=== PATIENT | female | born 1930 | race Caucasian/White ===

== ENCOUNTER 2016-10-14 10:58 | Emergency (ER) | payer MEDICARE, OTHER ==
--- NOTE | 2016-10-14 11:44 | Emergency Department Record ---
History of Present Illness - General Chief complaint: Eye Problem Stated complaint: L EYE RED Time Seen by Provider: 10/14/16 11:25 Source: Patient Mode of Arrival: Ambulatory Limitations: No limitations - History of Present Illness Initial comments: pt woke up with bright red conjunctiva yesterday. she has no pain and no change in vision. chief complaint: Eye redness Onset/Timin -: Days(s) Onset Description: Sudden Location: Left eye Place: Home Eye Symptoms: Redness Consistency: Constant - Related Data With correction: Yes Home Medications Medication Instructions Recorded Confirmed Last Taken Celecoxib [Celebrex] 200 mg PO QD cap 09/15/15 09/08/16 Unknown Cholecalciferol (Vitamin D3) 1,000 unit PO DAILY cap 09/15/15 09/08/16 Unknown [Vitamin D3] Cranberry Extract [Cranberry] 500 mg PO DAILY tab 09/15/15 09/08/16 Unknown Cyanocobalamin (Vitamin B-12) 2,500 mcg IM MONTHLY tab 09/15/15 09/08/16 Unknown [Vitamin B12] Hydrochlorothiazide 25 mg PO QD tab 09/15/15 09/08/16 Unknown Allergies Allergy/AdvReac Type Severity Reaction Status Date / Time nitrofurantoin Allergy ANAPHYLAXIS Verified 09/08/16 12:52 [From Macrobid] nitrofurantoin Allergy ANAPHYLAXIS Verified 09/08/16 12:52 macrocrystalline [From Macrobid] succinylcholine chloride AdvReac DIFFICULTY Verified 09/08/16 12:39 [From Anectine] BREATHING Travel Screening - Travel/Exposure Within Last 30 Days Have you traveled within the last 30 days?: No - Travel/Exposure Within Last Year Have you traveled outside the [place] in the last year?: No - Additonal Travel Details Have you been exposed to anyone with a communicable illness?: No - Travel Symptoms Symptom Screening: None Review of Systems Reviewed: No additional complaints except as noted below Constitutional: Reports: As per HPI. Denies: Chills, Fever, Malaise, Night sweats, Weakness, Weight change Eyes: Reports: As per HPI. Denies: Eye discharge, Eye pain, Photophobia, Vision change ENT: Reports: As per HPI. Denies: Congestion, Dental pain, Ear pain, Epistaxis , Hearing loss, Throat pain Respiratory: Reports: As per HPI. Denies: Cough, Dyspnea, Hemoptysis, Stridor, Wheezes Cardiovascular: Reports: As per HPI. Denies: Arrhythmia, Chest pain, Dyspnea on exertion, Edema, Murmurs, Orthopnea, Palpitations, Paroxysmal nocturnal dyspnea, Rheumatic Fever, Syncope Endocrine: Reports: As per HPI. Denies: Fatigue, Heat or cold intolerance, Polydipsia, Polyuria Gastrointestinal: Reports: As per HPI. Denies: Abdominal pain, Constipation, Diarrhea, Hematemesis, Hematochezia, Melena, Nausea, Vomiting Genitourinary: Reports: As per HPI. Denies: Abnormal menses, Discharge, Dyspareunia, Dysuria, Frequency, Hematuria, Incontinence, Retention, Urgency Musculoskeletal: Reports: As per HPI. Denies: Arthralgia, Back pain, Gout, Joint swelling, Myalgia, Neck pain Skin: Reports: As per HPI. Denies: Bruising, Change in color, Change in hair/ nails, Lesions, Pruritus, Rash Neurological: Reports: As per HPI. Denies: Abnormal gait, Confusion, Headache, Numbness, Paresthesias, Seizure, Tingling, Tremors, Vertigo, Weakness Psychiatric: Reports: As per HPI. Denies: Anxiety, Auditory hallucinations, Depression, Homicidal thoughts, Suicidal thoughts, Visual hallucinations Hematological/Lymphatic: Reports: As per HPI. Denies: Anemia, Blood Clots, Easy bleeding, Easy bruising, Swollen glands Past Medical History - SOCIAL HISTORY Smoking Status: Never smoker Alcohol Use: Rare Drug Use: None - RESPIRATORY Hx Respiratory Disorders: No - CARDIOVASCULAR Hx Cardio Disorders: No - NEURO Hx Neuro Disorders: No - GI Hx GI Disorders: Yes Hx Diverticulitis: Yes - Hx Genitourinary Disorders: Yes Hx UTI: Yes - ENDOCRINE Hx Endocrine Disorders: No - MUSCULOSKELETAL Hx Musculoskeletal Disorders: Yes Hx Arthritis: Yes - PSYCH Hx Psych Problems: No - HEMATOLOGY/ONCOLOGY Hx Hematology/Oncology Disorders: No Family Medical History Any Significant Family History?: Yes Hx Heart Disease: Mother Physical Exam - General General Appearance: Alert, Oriented x3, Cooperative, Mild distress - Head Head exam: Normal inspection - Eye Eye exam: Normal appearance, PERRL, EOMI, Other (subconjunctival hemorrhage.) Pupils: Normal accommodation With correction: Yes - ENT ENT exam: Normal exam, Mucous membranes moist, Normal external ear exam, Normal orophraynx, TM's normal bilaterally Ear exam: Normal external inspection. negative: External canal tenderness Nasal Exam: Normal inspection. negative: Discharge, Sinus tenderness Mouth exam: Normal external inspection, Tongue normal Teeth exam: Normal inspection. negative: Dental caries Throat exam: Normal inspection. negative: Tonsillar erythema, Tonsillar exudate - Neck Neck exam: Normal inspection, Full ROM. negative: Tenderness - Respiratory Respiratory exam: Normal lung sounds bilaterally. negative: Respiratory distress - Cardiovascular Cardiovascular Exam: Regular rate, Normal rhythm, Normal heart sounds - GI/Abdominal GI/Abdominal exam: Soft, Normal bowel sounds. negative: Tenderness - Rectal Rectal exam: Deferred - exam: Deferred - Extremities Extremities exam: Normal inspection, Full ROM, Normal capillary refill. negative: Tenderness - Back Back exam: Reports: Normal inspection, Full ROM. Denies: Muscle spasm, Rash noted, Tenderness - Neurological Neurological exam: Alert, CN II-XII intact, Normal gait, Oriented X3 - Psychiatric Psychiatric exam: Normal affect, Normal mood - Skin Skin exam: Dry, Intact, Normal color, Warm Course Vital Signs 10/14/16 11:01 Temperature 97.7 F Pulse Rate 82 Respiratory 18 Rate Blood Pressure 158/87 Pulse Ox 97 Disposition Disposition: Discharge Clinical Impression: Subconjunctival hemorrhage Qualifiers: Laterality: left Qualified Code(s): H11.32 - Conjunctival hemorrhage, left eye Disposition: Home, Self-Care Condition: (1) Good Instructions: Subconjunctival Hemorrhage (ED) Additional Instructions: follow up with dr dean. return sooner if worse Forms: Patient Portal Access
== END 2016-10-14 11:54 | disposition home or self-care (01) ==
LOC: ER 10:58
DX: H11.32 Conjunctival hemorrhage, left eye (principal)
CPT/HCPCS: 99282

== ENCOUNTER 2018-01-10 21:48 | Emergency (ER) | payer MEDICARE, OTHER | END 2018-01-10 22:30 | disposition left against medical advice (07) | LOC: ER 21:48 | DX: Z53.20 Procedure and treatment not carried out because of patient's decision for unspecified reasons (principal) ==

== ENCOUNTER 2018-03-09 18:58 | Emergency (ER) | payer MEDICARE, OTHER ==
--- NOTE | 2018-03-09 19:23 | Emergency Department Record ---
History of Present Illness - General Chief Complaint: Abdominal Pain Stated Complaint: CONSTIPATION Time Seen by Provider: 03/09/18 19:09 Source: Patient Mode of Arrival: Ambulatory Limitations: No limitations - History of Present Illness Initial Comments: 87 yo female presents to ED for evaluation of lower abdominal pain symptoms for the past 2 days associated the constipation symptoms. Patient denies fever symptoms and denies previous abdominal surgery other than laparoscopic surgery 20 years ago. Patient denies health problems at her baseline. MD Complaint: Abdominal pain Onset/Timin -: Days(s) Location: Diffuse Radiation: None Migration to: No migration Severity: Severe Severity scale (1-10): 8 Quality: Aching Consistency: Constant Improves With: Nothing Worsens With: Nothing Associated Symptoms: Chills - Related Data LMP (females 10-50): other Home Medications Medication Instructions Recorded Confirmed Last Taken Aspirin 325 mg PO ASDIR 03/09/18 03/09/18 Unknown Aspirin/Acetaminophen/Caffeine 1 each PO ASDIR 03/09/18 03/09/18 Unknown [Excedrin Extra Strength Caplet] Diclofenac Sodium [Voltaren] 1 ml TOP ASDIR 03/09/18 03/09/18 Unknown Allergies Allergy/AdvReac Type Severity Reaction Status Date / Time codeine Allergy PT UNSURE Unverified 03/09/18 19:44 OF REACTION furosemide Allergy NAUSEA AND Verified 03/09/18 19:44 VOMITING gabapentin Allergy NAUSEA AND Verified 03/09/18 19:44 VOMITING nitrofurantoin Allergy ANAPHYLAXIS Verified 03/09/18 19:44 [From Macrobid] nitrofurantoin Allergy ANAPHYLAXIS Verified 03/09/18 19:44 macrocrystalline [From Macrobid] venlafaxine Allergy RASH Verified 03/09/18 19:44 succinylcholine chloride AdvReac DIFFICULTY Verified 03/09/18 19:44 [From Anectine] BREATHING Travel Screening - Travel/Exposure Within Last 30 Days Have you traveled within the last 30 days?: No - Travel/Exposure Within Last Year Have you traveled outside the [place] in the last year?: No - Additonal Travel Details Have you been exposed to anyone with a communicable illness?: No - Travel Symptoms Symptom Screening: None Review of Systems Constitutional: Reports: Chills. Denies: Fever, Malaise, Night sweats Eyes: Denies: Eye discharge, Eye pain ENT: Denies: Congestion, Ear pain, Epistaxis Respiratory: Denies: Cough, Dyspnea Cardiovascular: Denies: Chest pain, Dyspnea on exertion Endocrine: Denies: Fatigue, Heat or cold intolerance Gastrointestinal: Reports: Abdominal pain, Nausea. Denies: Vomiting Genitourinary: Denies: Incontinence, Retention Musculoskeletal: Denies: Arthralgia, Back pain, Gout, Joint swelling Skin: Denies: Bruising, Change in color Neurological: Denies: Abnormal gait, Confusion, Headache, Seizure Psychiatric: Denies: Anxiety Hematological/Lymphatic: Denies: Anemia, Blood Clots Past Medical History - SOCIAL HISTORY Smoking Status: Never smoker Alcohol Use: None Drug Use: None - RESPIRATORY Hx Respiratory Disorders: No - CARDIOVASCULAR Hx Cardio Disorders: No - NEURO Hx Neuro Disorders: No - GI Hx GI Disorders: Yes Hx Diverticulitis: Yes - Hx Genitourinary Disorders: Yes Hx UTI: Yes - ENDOCRINE Hx Endocrine Disorders: No - MUSCULOSKELETAL Hx Musculoskeletal Disorders: Yes Hx Arthritis: Yes - PSYCH Hx Psych Problems: No - HEMATOLOGY/ONCOLOGY Hx Hematology/Oncology Disorders: No Family Medical History Any Significant Family History?: Yes Hx Heart Disease: Mother Physical Exam - General General Appearance: Alert, Oriented x3, Cooperative, Moderate distress Limitations: No limitations - Head Head exam: Atraumatic, Normocephalic, Normal inspection Head exam detail: negative: Abrasion, Contusion, Anne's sign, General tenderness, Hematoma, Laceration - Eye Eye exam: Normal appearance. negative: Conjunctival injection, Periorbital swelling, Periorbital tenderness, Scleral icterus - ENT Ear exam: negative: Auricular hematoma, Auricular trauma Nasal Exam: negative: Active bleeding, Discharge, Dried blood, Foreign body Mouth exam: negative: Drooling, Laceration, Muffled voice, Tongue elevation - Neck Neck exam: Normal inspection. negative: Meningismus, Tenderness - Respiratory Respiratory exam: Normal lung sounds bilaterally. negative: Rales, Respiratory distress, Rhonchi, Stridor - Cardiovascular Cardiovascular Exam: Normal rhythm, Normal heart sounds, Tachycardia - GI/Abdominal GI/Abdominal exam: Soft, Tenderness, Other (Diffuse TTP, no rebound, guarding, or peritoneal signs on examination.). negative: Rebound, Rigid - Rectal Rectal exam: Deferred - exam: Deferred - Extremities Extremities exam: Normal inspection. negative: Calf tenderness, Pedal edema, Tenderness - Back Back exam: Denies: CVA tenderness (R), CVA tenderness (L) - Neurological Neurological exam: Alert, Normal gait, Oriented X3 - Psychiatric Psychiatric exam: Normal affect, Normal mood - Skin Skin exam: Normal color. negative: Abrasion Type of lesion: negative: abrasion Course Vital Signs 03/09/18 19:04 Temperature 98 F Pulse Rate [ 102 H Pulse Ox Probe] Respiratory 20 Rate Blood Pressure 127/83 [Right Arm] Pulse Ox 97 - Reevaluation(s) Reevaluation #1: 03/09/18 21:30 Laboratory studies were reviewed, K 3.0. Labs are otherwise grossly unremarkable for an acute process. Patient is now back from CT imaging, interpretation pending. Reevaluation #2: 03/09/18 22:07 CT Abdomen and Pelvis: Findings c/w appendicitis Micro perforation Thickening of the cecum and surrounding small bowel. Zosyn ordered to infuse, will consult with Dr. De Dios for disposition. Reevaluation #3: 03/09/18 22:14 Case was discussed with Dr. De Dios, will accept transfer for surgical consultation. Reevaluation #4: 03/09/18 22:52 Bed assignment has been received from [facility], and EMS is ready for transfer. Family members at the bedside were updated on all results and the plan of care as well. Medical Decision Making - Lab Data Result diagrams: 03/09/18 Unknown 03/09/18 Unknown Disposition Disposition: Transfer Clinical Impression: Acute appendicitis Qualifiers: Acute appendicitis type: with localized peritonitis Qualified Code(s): K35.3 - Acute appendicitis with localized peritonitis Disposition: Acute Care Hospital Transfer Transfer To: [facility] Reason For Transfer: Surgical Consultation Accepting Physician: Va Time Discussed w/Accepting Physician: 22:09 Condition: (2) Stable Forms: Patient Portal Access Time of Disposition: 22:09 Quality - Quality Measures Quality Measures: N/A - Blood Pressure Screening Does Patient Have Any of the Following: No Blood Pressure Classification: Hypertensive Reading Systolic Measurement: 134 Diastolic Measurement: 91 Screening for High Blood Pressure: < First Hypertensive BP, F/U Documented > [ [id number]] First Hypertensive Follow-up Interventions: Referral to alternative/primary care provider.
[2018-03-09 19:26] LABS: BASO % 0.2 % (0-6); EOS % 0.1 % (0-6); GRAN % 70.1 % (47-80); HEMATOCRIT 42.3 % (35.0-47.0); HEMOGLOBIN 13.3 gm/dl (11.6-16.0); LYMPH % 24.9 % (16-45); MEAN CORPUSCULAR HEMOGLOBIN 28.6 pg (27-33); MEAN CORPUSCULAR HGB CONC 31.4 g/dl (32-36); MEAN PLATELET VOLUME 9.3 fl (7.4-10.4); MONO % 4.7 % (0-9); PLATELET COUNT 295 K/uL (130-400); RED BLOOD COUNT 4.65 M/uL (3.80-5.40); RED CELL DISTRIBUTION WIDTH 14.1 % (11.5-14.5); WHITE BLOOD COUNT W/O DIFF 11.5 K/uL (4.2-12.2)
[2018-03-09] MEDS: FENTANYL PF 100MCG/2ML VIAL IVP ONE ×2 (19:33→23:12)
[2018-03-09] MEDS: ONDANSETRON HCL IV 4 MG/2 ML VIAL IVP ONE (19:33)
[2018-03-09] MEDS: 0.9 % SODIUM CHLORIDE 1000ML 1,000 ML IV SCH (19:33)
[2018-03-09 19:37] LABS: BLOOD UREA NITROGEN 15 mg/dL (8-23); CREATININE 0.7 mg/dL (0.5-0.9); EST GLOMERULAR FILTRATION RATE > 60 mL/min
[2018-03-09 19:40] LABS: GLUCOSE,RANDOM 136 mg/dL (74-109)
[2018-03-09 19:42] LABS: ALBUMIN 3.7 g/dL (4.0-5.0); ALKALINE PHOSPHATASE 117 U/L (35-104); ALT/SGPT 10 U/L (<33); AST/SGOT 20 U/L (10.0-35.0)
[2018-03-09 19:43] LABS: ALB/GLOB RATIO 1.1 (1.1-1.8); LIPASE 24 U/L (13-60)
[2018-03-09] MEDS: MAGNESIUM HYDROXIDE/AL HYDROX 30 ML, LIDOCAINE VISC 2% 15ML 15 ML PO ONE ×2 (21:36)
[2018-03-09] MEDS ORDERED: 0.9 % SODIUM CHLORIDE 1000ML 1,000 ML IV SCH (22:15)
[2018-03-09] MEDS: PIPERACILLIN SODIUM/TAZOBACTAM 4.5 GM in 0.9 % SODIUM CHLORIDE 100ML 100 ML IVPB ONE (22:28)
[2018-03-09] MEDS: SOD CHLOR 0.9% WITH KCL 40MEQ 40 MEQ/1,000 ML IV.SOLN IV ONE (22:28)
--- NOTE | 2018-03-10 00:10 | CT SCAN REPORT ---
EXAM: CT SCAN ABDOMEN/PELVIS W CONTRAST HISTORY: LOWER MID ABDOMINAL TENDERNESS AND PAIN FOR ONE DAY. PREVIOUS CHOLECYSTECTOMY. TECHNIQUE: Routine CT images of the abdomen and pelvis obtained following intravenous administration of contrast, amount and type of contrast in the medical record. FINDINGS: There is bibasilar atelectasis or scar. Gallbladder surgically absent. Liver, pancreas, spleen, adrenals, and kidneys are unremarkable. Small hiatal hernia. There are findings compatible with acute appendicitis. The appendix is dilated measuring 11 mm in caliber with surrounding inflammatory change. There are bubbles of gas, which are extraluminal compatible with microperforation. No rim-enhancing abscess. Mild surrounding free fluid. There is nearby wall thickening of the cecum and terminal ileum, presumably reactive, though other processes not excluded. Elsewhere, there is scattered colonic diverticulosis. Bladder unremarkable. Uterus is present. There are calcified uterine fibroids/ leiomyomata. There is atherosclerotic calcification. Aorta normal in caliber. There are a few mildly prominent mesenteric lymph nodes, especially within the right lower quadrant, which may be reactive. There are similar advanced degenerative changes involving the lumbar spine. Grade 1 anterolisthesis L2-3 and marked endplate irregularity, slightly progressed. Dextrocurvature within the lumbar spine. IMPRESSION: 1. FINDINGS COMPATIBLE WITH ACUTE APPENDICITIS. THERE IS EXTRALUMINAL GAS, LIKELY RELATED TO MICROPERFORATION. NO RIB-ENHANCING ABSCESS. 2. ASSOCIATED WALL THICKENING INVOLVING THE CECUM AND NEARBY SMALL BOWEL LOOPS IS PROBABLY REACTIVE, THOUGH UNDERLYING MASS WOULD BE DIFFICULT TO COMPLETELY EXCLUDE. ATTENTION SHOULD BE PAID TO THIS REGION AT TIME OF SURGERY. 3. MILDLY PROMINENT MESENTERIC LYMPH NODES, ESPECIALLY WITHIN THE RIGHT LOWER QUADRANT, WHICH MAY BE REACTIVE, THOUGH NONSPECIFIC. 4. MILD FREE FLUID. 5. COLONIC DIVERTICULOSIS. 6. UTERINE LEIOMYOMATA. 7. ADVANCED LUMBAR SPONDYLOSIS, WHICH HAS PROGRESSED COMPARED TO PREVIOUS EXAM AND DEMONSTRATES ENDPLATE IRREGULARITY, MOST NOTABLY AT L2-3. JOB NUMBER: [id number] [facility]
== END 2018-03-09 23:14 | disposition short-term general hospital (02) ==
LOC: ER 18:58
DX: K35.3 Acute appendicitis with localized peritonitis (principal); E87.6 Hypokalemia
CPT/HCPCS: 74177; 80053; 83690; 85025; 96365; 96366; 96368; 96375; 96376; 99285; J2405; J2543; J3490; J7030

== ENCOUNTER 2018-12-28 10:40 | Emergency (ER) | payer MEDICARE, OTHER ==
[2018-12-28 11:07] LABS: URINE APPEARANCE CLOUDY; URINE BILIRUBIN NEGATIVE (NEGATIVE); URINE BLOOD MODERATE (NEGATIVE); URINE COLOR YELLOW; URINE GLUCOSE (UA) NEGATIVE (NEGATIVE); URINE KETONE NEGATIVE (NEGATIVE); URINE LEUKOCYTE ESTERASE LARGE (NEGATIVE); URINE NITRITE POSITIVE (NEGATIVE); URINE PROTEIN TRACE (NEGATIVE); URINE UROBILINOGEN 0.2 E.U./dL (0.20 - 1.00)
--- NOTE | 2018-12-28 11:12 | Emergency Department Record ---
History of Present Illness - General Chief complaint: Female Urogenital Problem Stated complaint: POSS BLADDER INFECTION Time Seen by Provider: 12/28/18 11:02 Source: Patient Mode of Arrival: Ambulatory Limitations: No limitations - History of Present Illness Initial comments: pt thinks she has a uti. no n/v, no fever. she has freq, urgency MD Complaint: Dysuria Onset/Timin -: Days(s) Severity: Moderate Severity scale (1-10): 7 Quality: Cramping, Other Consistency: Intermittent Improves with: None Worsens with: Urination Associated Symptoms: Dysuria - Related Data Home Medications Medication Instructions Recorded Confirmed Last Taken Schulenburg-3 Fatty Acids [Schulenburg-3] 1 tab PO DAILY 12/28/18 12/28/18 12/28/18 Previous Rx's Medication Instructions Recorded Sulfamethoxazole/Trimethoprim 1 each PO BID #14 tablet 12/28/18 [Bactrim Ds Tablet] Allergies Allergy/AdvReac Type Severity Reaction Status Date / Time codeine Allergy PT UNSURE Verified 12/28/18 10:49 OF REACTION furosemide Allergy NAUSEA AND Verified 12/28/18 10:49 VOMITING gabapentin Allergy NAUSEA AND Verified 12/28/18 10:49 VOMITING nitrofurantoin Allergy ANAPHYLAXIS Verified 12/28/18 10:49 [From Macrobid] nitrofurantoin Allergy ANAPHYLAXIS Verified 12/28/18 10:49 macrocrystalline [From Macrobid] venlafaxine Allergy RASH Verified 12/28/18 10:49 succinylcholine chloride AdvReac DIFFICULTY Verified 12/28/18 10:49 [From Anectine] BREATHING Travel Screening - Travel/Exposure Within Last 30 Days Have you traveled within the last 30 days?: No - Travel/Exposure Within Last Year Have you traveled outside the [place] in the last year?: No - Additonal Travel Details Have you been exposed to anyone with a communicable illness?: No - Travel Symptoms Symptom Screening: None Review of Systems Reviewed: No additional complaints except as noted below Constitutional: Reports: As per HPI. Denies: Chills, Fever, Malaise, Night sweats, Weakness, Weight change Eyes: Reports: As per HPI. Denies: Eye discharge, Eye pain, Photophobia, Vision change ENT: Reports: As per HPI. Denies: Congestion, Dental pain, Ear pain, Epistaxis , Hearing loss, Throat pain Respiratory: Reports: As per HPI. Denies: Cough, Dyspnea, Hemoptysis, Stridor, Wheezes Cardiovascular: Reports: As per HPI. Denies: Arrhythmia, Chest pain, Dyspnea on exertion, Edema, Murmurs, Orthopnea, Palpitations, Paroxysmal nocturnal dyspnea, Rheumatic Fever, Syncope Endocrine: Reports: As per HPI. Denies: Fatigue, Heat or cold intolerance, Polydipsia, Polyuria Gastrointestinal: Reports: As per HPI. Denies: Abdominal pain, Constipation, Diarrhea, Hematemesis, Hematochezia, Melena, Nausea, Vomiting Genitourinary: Reports: As per HPI, Dysuria, Frequency, Urgency. Denies: Abnormal menses, Discharge, Dyspareunia, Hematuria, Incontinence, Retention Musculoskeletal: Reports: As per HPI. Denies: Arthralgia, Back pain, Gout, Joint swelling, Myalgia, Neck pain Skin: Reports: As per HPI. Denies: Bruising, Change in color, Change in hair/ nails, Lesions, Pruritus, Rash Neurological: Reports: As per HPI. Denies: Abnormal gait, Confusion, Headache, Numbness, Paresthesias, Seizure, Tingling, Tremors, Vertigo, Weakness Psychiatric: Reports: As per HPI. Denies: Anxiety, Auditory hallucinations, Depression, Homicidal thoughts, Suicidal thoughts, Visual hallucinations Hematological/Lymphatic: Reports: As per HPI. Denies: Anemia, Blood Clots, Easy bleeding, Easy bruising, Swollen glands Past Medical History - SOCIAL HISTORY Smoking Status: Never smoker Alcohol Use: Rare Drug Use: None - RESPIRATORY Hx Respiratory Disorders: No - CARDIOVASCULAR Hx Cardio Disorders: No - NEURO Hx Neuro Disorders: No - GI Hx GI Disorders: Yes Hx Diverticulitis: Yes - Hx Genitourinary Disorders: Yes Hx UTI: Yes - ENDOCRINE Hx Endocrine Disorders: No - MUSCULOSKELETAL Hx Musculoskeletal Disorders: Yes Hx Arthritis: Yes - PSYCH Hx Psych Problems: No - HEMATOLOGY/ONCOLOGY Hx Hematology/Oncology Disorders: No Family Medical History Any Significant Family History?: Yes Hx Heart Disease: Mother Physical Exam - General General Appearance: Alert, Oriented x3, Cooperative, No acute distress - Head Head exam: Normal inspection - Eye Eye exam: Normal appearance, PERRL, EOMI Pupils: Normal accommodation - ENT ENT exam: Normal exam, Mucous membranes moist, Normal external ear exam, Normal orophraynx Ear exam: Normal external inspection. negative: External canal tenderness Nasal Exam: Normal inspection. negative: Discharge, Sinus tenderness Mouth exam: Normal external inspection, Tongue normal Teeth exam: Normal inspection. negative: Dental caries Throat exam: Normal inspection. negative: Tonsillar erythema, Tonsillar exudate - Neck Neck exam: Normal inspection, Full ROM. negative: Tenderness - Respiratory Respiratory exam: Normal lung sounds bilaterally. negative: Respiratory distress - Cardiovascular Cardiovascular Exam: Regular rate, Normal rhythm, Normal heart sounds - GI/Abdominal GI/Abdominal exam: Soft, Normal bowel sounds. negative: Tenderness - Rectal Rectal exam: Deferred - exam: Deferred - Extremities Extremities exam: Normal inspection, Full ROM, Normal capillary refill. negative: Tenderness - Back Back exam: Reports: Normal inspection, Full ROM. Denies: Muscle spasm, Rash noted, Tenderness - Neurological Neurological exam: Alert, CN II-XII intact, Normal gait, Oriented X3 - Psychiatric Psychiatric exam: Normal affect, Normal mood - Skin Skin exam: Dry, Intact, Normal color, Warm Course Vital Signs 12/28/18 10:54 Temperature 97.9 F Pulse Rate 74 Respiratory 18 Rate Blood Pressure 120/78 Pulse Ox 97 Disposition Disposition: Discharge Clinical Impression: UTI (urinary tract infection) Qualifiers: Urinary tract infection type: acute cystitis Hematuria presence: without hematuria Qualified Code(s): N30.00 - Acute cystitis without hematuria Disposition: Home, Self-Care Condition: (1) Good Instructions: Urinary Tract Infection in Women (ED) Additional Instructions: follow up with family doctor. return sooner if worse. Prescriptions: Sulfamethoxazole/Trimethoprim [Bactrim Ds Tablet] 1 each PO BID #14 tablet Forms: Patient Portal Access Quality - Quality Measures Quality Measures: N/A - Blood Pressure Screening Does Patient Have Any of the Following: Active Dx of HTN Blood Pressure Classification: Pre-Hypertensive BP Reading Systolic Measurement: 120 Diastolic Measurement: 78 Screening for High Blood Pressure: Patient Exclusion, Hx of HTN [G9744]
[2018-12-28 11:14] LABS: URINE BACTERIA 3+; URINE EPITHELIAL CELLS 0 - 2 (FEW); URINE RBC 0 - 2 (NONE SEEN)
== END 2018-12-28 11:20 | disposition home or self-care (01) ==
LOC: ER 10:40
DX: N30.00 Acute cystitis without hematuria (principal)
CPT/HCPCS: 81001; 99282; 99283